=== PATIENT | female | born 1990 | race Caucasian/White ===

== ENCOUNTER 2023-10-09 13:26 | Outpatient (CLI) | payer OTHER ==
[2023-10-09] MEDS ORDERED: PROTONIX40 MG PO (14:05)
[2023-10-09] MEDS ORDERED: FOLIC ACID20 MG PO (14:05)
[2023-10-09] MEDS ORDERED: PRENATAL TABLE1 EAC1 PO (14:05)
[2023-10-09] MEDS ORDERED: TYLENOL325 MG PO (14:06)
[2023-10-09 14:49] LABS: PH,URINE 6.5 (5.0-8.0); URINE APPEARANCE Clear; URINE BILIRRUBIN Negative (NEGATIVE); URINE BLOOD Negative; URINE COLOR Yellow; URINE GLUCOSE Negative (NEGATIVE); URINE LEUKOCYTE Negative; URINE NITRATE Negative; URINE PROTEIN Negative (NEGATIVE)
[2023-10-09 14:51] LABS: HEMATOCRIT 30.3 % (36.0-45.00); MEAN CELL VOLUME 85.3 fL (80.00-100.00); MEAN CORPUSCULAR HGB CONC 32.5 g/dl (32.0-36.0); PLATELET COUNT 209 K/uL (150-450); RED BLOOD COUNT 3.55 M/uL (4.00-6.00); RED CELL DISTRIBUTION WIDTH 13.8 % (11.5-14.5)
[2023-10-09 14:52] LABS: HEMOGLOBIN 9.8 g/dL (12.0-15.00); MEAN CORPUSCULAR HEMOGLOBIN 27.6 pg (27.00-32.0)
[2023-10-09 14:53] LABS: URINE BACTERIA 1446.4 uL (0.0-1933); URINE RBC 8.1 uL (0.0-20.8); URINE WBC 17.1 uL (0.0-23.2)
[2023-10-09 15:25] LABS: ALBUMIN 2.4 gm/dL (3.4-5.0); BILIRUBIN TOTAL 0.23 mg/dL (0.3-1.2); CALCIUM 8.4 mg/dL (8.5-10.1); CREATININE SERUM 0.54 mg/dL (0.55-1.02); GFR 131.68; GLOBULINA 3.8 G/DL (2.4-3.5); POTASSIUM 3.76 mEq/L (3.5-5.1); TOTAL PROTEIN 6.2 gm/dL (6.4-8.2)
== END 2023-10-10 10:16 | disposition home or self-care (01) ==
LOC: OBS/DEL 13:26
PROVIDERS: ATTEND Obstetrics & Gynecology
DX: O26.892 Other specified pregnancy related conditions, second trimester (principal); G44.009 Cluster headache syndrome, unspecified, not intractable; Z3A.27 27 weeks gestation of pregnancy